=== PATIENT | female | born 1960 | race African-American/Black ===

== ENCOUNTER → 2019-03-06 | Outpatient (CLI) | payer BC ==
[~2019-03-06] MED LIST: REGADENOSON 0.4 MG/5 ML DISP.SYRIN. IV ONE
--- NOTE | 2019-03-06 13:04 | PCVCIMAG ---
APPROVED REPORT Study performed: 03/06/2019 09:49:10 EXAM: Comprehensive 2D, Doppler, and color-flow Echocardiogram Patient Location: Echo lab Status: routine BSA: 2.10 HR: 70 bpmBP: 174/108 mmHg Rhythm: NSR Other Information Study Quality: Adequate Risk Factors: Cardiac Risk Factors: HTN Indications Palpitations Chest Pain migraine- bubble study to rule out PFO Echo Enhancing Agent Indication: Rule Out Septal Defect Agent(s) / Amount(s) Used: Agitated Saline cc Comments: Negative bubble study x2 2D Dimensions IVSd: 9.30 (7-11mm) LVDd: 47.48 mm PWd: 9.52 (7-11mm)Ascending Ao: 33.68 (22-36mm) LVDs: 33.39 (25-40mm) Left Atrium: 33.49 (27-40mm) Aortic Root: 26.38 mm LV Single Plane 4CH: 57.98 % LV Single Plane 2CH: 54.30 % Biplane EF: 55.9 % Volumes Left Atrial Volume (Systole) Single Plane 4CH: 52.22 mLSingle Plane 2CH: 52.43 mL LA ESV Index: 25.00 mL/m2 Aortic Valve AoV Peak Danny.: 1.26 m/s AO Peak Gr.: 6.36 mmHgLVOT Max P.85 mmHg LVOT Max V: 0.98 m/s Mitral Valve E/A Ratio: 0.8 MV Decel. Time: 223.63 ms MV E Max Danny.: 0.63 m/s MV A Danny.: 0.76 m/s IVRT: 117.65 ms Pulmonary Valve PV Peak Danny.: 0.74 m/sPV Peak Gr.: 2.19 mmHg Pulmonary Vein P Vein S: 0.26 m/sP Vein A: 0.31 m/s P Vein D: 0.32 m/sP Vein A Dur.: 124.6 msec P Vein S/D Ratio: 0.81 Tricuspid Valve TR Peak Danny.: 2.77 m/s TR Peak Gr.: 30.68 mmHg TV Vmax: 0.41 m/s Left Ventricle The left ventricle is normal size. There is normal LV segmental wall motion. There is normal left ventricular wall thickness. Left ventricular systolic function is normal. The left ventricular ejection fraction is within the normal range. LVEF is 55-60%. Grade I - abnormal relaxation pattern. Right Ventricle The right ventricle is normal size. The right ventricular systolic function is normal. Atria The left atrium size is normal. Injection of bubbles documented no interatrial shunt with and without valsalva maneuver. The right atrium size is normal. Aortic Valve The aortic valve is normal in structure. No aortic regurgitation is present. There is no aortic valvular stenosis. Mitral Valve The mitral valve is normal in structure. Trace mitral regurgitation. No evidence of mitral valve stenosis. Tricuspid Valve The tricuspid valve is normal in structure. Mild tricuspid regurgitation with PAP of 38 mmHg. Pulmonic Valve The pulmonary valve is normal in structure. Trace pulmonic regurgitation. Great Vessels The aortic root is normal in size. IVC is normal in size and collapses >50% with inspiration. Pericardium There is no pericardial effusion. There is no pleural effusion. <Conclusion> The left ventricle is normal size. LVEF is 55-60%. Injection of bubbles documented no interatrial shunt with and without valsalva maneuver. The aortic valve is normal in structure. The mitral valve is normal in structure. Trace mitral regurgitation. The tricuspid valve is normal in structure. Mild tricuspid regurgitation with PAP of 38 mmHg. The pulmonary valve is normal in structure. Trace pulmonic regurgitation. There is no pericardial effusion.
--- NOTE | 2019-03-08 12:15 | PCVCIMAG ---
APPROVED REPORT Imaging Protocol: Rest Tc-99m/Stress Tc-99m 1 day Study performed: 03/06/2019 10:48:09 Indication: Chest pain, Palpitations Patient Location: Out-Patient Stress Nurse: Aaliyah Delvalle RN, JEFF Way Tech:Horacio Donahue [id number] Ht: 5 ft 6 in Wt: 220 lbs BSA: 2.08 m2 HR: 80 bpm BP: 178/100 mmHg BMI: 35.5 Rhythm: Sinus Rhythm Medical History Medical History: Age, HTN, Former Smoker Medications: Metoprolol (held 24 hours) Allergies: Amlodipine, Triamterene/HCTZ, Losartan Pretest Chest Pain Characteristics: No chest pain Exercise History: Sedentary Resting Data Rest SPECT myocardial perfusion imaging was performed in supine position 45 minutes following the intravenous injection of 11.4 mCi of Tc-99m Sestamibi. Time of rest injection: 1000 Date: 03/06/2019 Administration Route: IV Administration Site: Left AC Pharmacologic Stress Pharmacologic stress test was performed by injecting Regadenoson 0.4 mg IV push over 10-15 seconds immediately followed by the intravenous injection of 33.2 mCi of Tc-99m Sestamibi. Time of stress injection: 1115 Date: 03/06/2019 Administration Route: IV Administration Site: Left AC Gated Stress SPECT was performed 45 minutes after stress injection. The images were gated to evaluate regional wall motion and calculate left ventricular ejection fraction. Stress Test Details Stress Test: Exercise stress testing was performed using a Patricio protocol. HRMax Heart Rate (APMHR): 163 bpm Resting HR: 80 bpmTarget HR (85% APMHR): 138 bpm Max HR Achieved: 171 bpm % of APMHR: 104 Recovery HR: 86 bpm HR response to stress: Accelerated HR response to stress BP Resting BP: 178/100 mmHg Max BP: 220/106 mmHg Recovery BP: 159/74 mmHg BP response to stress: Abnormal hypertensive response to stress. ECG Resting ECG: Sinus Rhythm Stress ECG: Sinus Tachycardia ST Change: Upsloping ST depression Maximum ST Deviation: 0.5 mm Arrhythmia: None Recovery ECG: Sinus Rhythm Recovery ST Change: None Clinical Reason for Termination: Fatigue, Dyspena, [place] Blood Pressure Stress Symptoms: Dyspnea Exercise duration: 6 min 00 sec Exercise capacity: 7.0 METs Overall Exercise Capacity for Age: Poor Scale: Sedentary Angina Score: None Symptoms resolved during recovery. Stress ECG Conclusion 1. Subjectively negative for ischemia 2. Echocardiographically negative for ischemia 3. Reduced functional capacity Juarez Treadmill Score is 3.5 which is Moderate risk. Study Data Post stress, the left ventricular ejection was 73%.. SSS: 0 SRS: 0 SDS: 0 TID = 0.74. Perfusion There is a small area of moderately reduced uptake in the apical segment of the anterior wall which is seen on the stress images as well as the resting images. This area thickens and moves normally and is most consistent with attenuation artifact. Wall Motion Normal left ventricular wall motion. Nuclear Conclusion ECG Findings: negative for ischemia Clinical Findings: negative for ischemia Nuclear Findings: negative for ischemia Exercise Capacity: normal Left Ventricular Function: normal 1.low risk study 2. post stress lvef 73% Interpreted by: Shiva Jhaveri MD Electronically Approved: 03/08/2019 12:15:01 <Conclusion> 1. Subjectively negative for ischemia 2. Echocardiographically negative for ischemia 3. Reduced functional capacity
== END | disposition home or self-care (01) ==
LOC: PCVCIMAG 09:10
PROVIDERS: ATTEND Internal Medicine
DX: I07.1 Rheumatic tricuspid insufficiency (principal); R00.2 Palpitations; R07.89 Other chest pain; G43.001 Migraine without aura, not intractable, with status migrainosus
CPT/HCPCS: 78452; 93017; 93306; A9500; J2785